=== PATIENT | female | born 1930 | race Caucasian/White ===

== ENCOUNTER 2018-07-25 15:14 | Observation (INO) ==
[2018-07-25] MEDS ORDERED: methylPREDNISolone SOD SUC 125 MG/2 ML VIAL IV STA (16:01)
[2018-07-25] MEDS ORDERED: ONDANSETRON 4 MG/2 ML VIAL IV STA (16:01)
[2018-07-25] MEDS ORDERED: AZITHROMYCIN INJ 500 MG in SODIUM CHLORIDE 0.9% 250 ML IV STA (16:01)
[2018-07-25] MEDS ORDERED: ALBUTEROL/IPRATROPIUM 3 ML NEB RESP TX STA (16:01)
[2018-07-25 16:14] LABS: Basophils # 0.1 10*3/uL (0.0-0.2); Basophils % 0.9 % (0.0-0.8); Eosinophils # 0.3 10*3/uL (0.0-0.87); Eosinophils % 3.3 % (0.00-10.9); Hematocrit 34.5 VOL% (35.7-47.0); Hemoglobin 10.7 GM/DL (12.0-16.0); Immature Granulocytes % 0.3 %; Immature Granulocytes Absolute 0.03 #; Lymphocytes # 0.7 10*3/uL (1.4-4.0); Lymphocytes % 8.3 % (21.3-54.2); Mean Corpuscular Hemoglobin 29 PG (27-34); Mean Platelet Volume 9.7 FL (9.6-12.0); Monocytes # 0.6 10*3/uL (0.11-0.8); Neutrophils # 6.9 10*3/uL (1.4-7.4); Neutrophils % 80.2 % (38.7-73.9); Platelet Count 224 T/CUMM (130-400); Red Blood Count 3.67 MC/CUMM (3.8-5.5); Red Cell Distribution Width 13.2 % (9.3-17.3); White Blood Count 8.6 T/CUMM (4-12)
[2018-07-25 16:27] LABS: PT Patient Result 10.4 SECS; Partial Thromboplastin Time 26.6 SECS (0-40)
[2018-07-25 16:33] LABS: Alanine Aminotransferase 10 U/L (13-56); Albumin 3.8 G/DL (3.4-5.0); Alkaline Phosphatase 99 U/L (45-117); Aspartate Amino Transferase 15 U/L (0-37); Bilirubin,Total < 0.39 MG/DL (0.2-1.0); Blood Urea Nitrogen 40 MG/DL (7-18); Calcium 8.7 MG/DL (8.5-10.1); Glucose 131 MG/DL (74-106); Osmolality,Calculated 288.5 MOS/KG (273-304); Potassium 4.1 MMOL/L (3.5-5.1); Sodium 139 MMOL/L (136-145); Total Protein 7.2 G/DL (6.4-8.3); Troponin I 0.056 NG/ML (0.00-0.045)
[2018-07-25 17:28] LABS: Apearance,Urine CLEAR (Clear); Bilirubin,Urine Negative (Negative); Blood, Urine Negative (Negative); Glucose,Urine (UA) Negative (Negative); Hyaline Casts,Urine 18 /LPF (0-3); Ketones,Urine Negative (Negative); Mucus,Urine Occasional /LPF (Occasional); Nitrite,Urine Negative (Negative); Protein,Urine Negative; Urine Color Yellow (Yellow); Urine Specific Gravity 1.011 (1.001-1.035); Urine Urobilinogen < 2.0 EU/DL (0.2-1.0); WBC,Urine <1 /HPF (0-6)
[2018-07-25] MEDS ORDERED: ONDANSETRON 4 MG/2 ML VIAL IV PRN (17:58)
[2018-07-25] MEDS ORDERED: ACETAMINOPHEN 325 MG TABLET PO PRN (17:58)
[2018-07-25] MEDS ORDERED: ALBUTEROL/IPRATROPIUM 3 ML NEB RESP TX PRN (17:59)
[2018-07-25] MEDS ORDERED: NITROGLYCERIN SL 0.4 MG TABLET SL PRN (18:00)
[2018-07-25] MEDS ORDERED: SODIUM CHLORIDE 0.45% 1,000 ML IV SCH (18:30)
[2018-07-25] MEDS: ALBUTEROL/IPRATROPIUM 3 ML NEB RESP TX SCH (19:33)
[2018-07-25] MEDS: BUDESONIDE 0.5 MG/2 ML NEB RESP TX SCH (19:34)
[2018-07-25] MEDS ORDERED: ATORVASTATIN 80 MG TABLET PO SCH (21:00)
[2018-07-25] MEDS ORDERED: ENOXAPARIN 30 MG/0.3 ML SYRINGE SUBCUT SCH (21:00)
[2018-07-25] MEDS: POTASSIUM CHLORIDE 20 MEQ TABLET PO SCH (21:07)
[2018-07-25] MEDS: PANTOPRAZOLE 40 MG TABLET PO SCH (21:07)
[2018-07-25] MEDS: FERROUS SULFATE 325 MG TABLET PO SCH (21:08)
[2018-07-25] MEDS: FUROSEMIDE 80 MG TABLET PO SCH (21:08)
[2018-07-25] MEDS: MEXILETINE 150 MG CAPSULE PO SCH (21:08)
[2018-07-25] MEDS: sulfaSALAzine 500 MG TABLET PO SCH (21:09)
[2018-07-25] MEDS ORDERED: IBUPROFEN 600 MG TABLET PO PRN (23:37)
[2018-07-26 01:04] LABS: Basophils % 0.5 % (0.0-0.8); Hematocrit 33.5 VOL% (35.7-47.0); Hemoglobin 10.2 GM/DL (12.0-16.0); Immature Granulocytes % 0.6 %; Immature Granulocytes Absolute 0.04 #; Lymphocytes # 0.4 10*3/uL (1.4-4.0); Mean Corpuscular HGB Conc 30.4 GM/DL (32-36); Mean Corpuscular Hemoglobin 29 PG (27-34); Mean Platelet Volume 9.9 FL (9.6-12.0); Monocytes # 0.2 10*3/uL (0.11-0.8); Monocytes % 2.5 % (1.7-12.7); Neutrophils # 5.9 10*3/uL (1.4-7.4); Neutrophils % 90.4 % (38.7-73.9); Platelet Count 217 T/CUMM (130-400); Red Blood Count 3.49 MC/CUMM (3.8-5.5); Red Cell Distribution Width 13.2 % (9.3-17.3); White Blood Count 6.5 T/CUMM (4-12)
[2018-07-26 01:46] LABS: Calcium 8.3 MG/DL (8.5-10.1); Osmolality,Calculated 292.3 MOS/KG (273-304); Potassium 4.3 MMOL/L (3.5-5.1); Thyroid Stimulating Hormone 1.45 uIU/ml (0.358-3.74)
[2018-07-26] MEDS: ALBUTEROL/IPRATROPIUM 3 ML NEB RESP TX SCH ×2 (01:50→07:25)
[2018-07-26] MEDS ORDERED: LEVOTHYROXINE 100 MCG TABLET PO SCH (06:30)
[2018-07-26] MEDS: BUDESONIDE 0.5 MG/2 ML NEB RESP TX SCH (07:26)
[2018-07-26] MEDS ORDERED: FLUTICASONE/SALMETEROL 250-50 DISKUS 14 DOSE INH SCH (09:00)
[2018-07-26] MEDS ORDERED: ASPIRIN CHEW 81 MG TABLET PO SCH (09:00)
[2018-07-26] MEDS ORDERED: AZITHROMYCIN 250 MG TABLET PO SCH (09:00)
[2018-07-26] MEDS ORDERED: LOSARTAN 25 MG TABLET PO SCH (09:00)
[2018-07-26] MEDS ORDERED: CLOPIDOGREL 75 MG TABLET PO SCH (09:00)
[2018-07-26] MEDS ORDERED: CALCIUM (CARBONATE)/VITAMIN D 500 MG-200 UNIT TABLET PO SCH (09:00)
[2018-07-26] MEDS ORDERED: MAGNESIUM OXIDE 400 MG TABLET PO SCH (09:00)
[2018-07-26] MEDS ORDERED: METOPROLOL SUCCINATE XL 50 MG TABLET PO SCH (09:00)
[2018-07-26 09:24] VITALS: BP 131/54
[2018-07-26] MEDS: FUROSEMIDE 80 MG TABLET PO SCH (09:31)
[2018-07-26] MEDS: POTASSIUM CHLORIDE 20 MEQ TABLET PO SCH (09:31)
[2018-07-26] MEDS: PANTOPRAZOLE 40 MG TABLET PO SCH (09:31)
[2018-07-26] MEDS: MEXILETINE 150 MG CAPSULE PO SCH (09:32)
[2018-07-26] MEDS: FERROUS SULFATE 325 MG TABLET PO SCH (09:32)
[2018-07-26] MEDS: sulfaSALAzine 500 MG TABLET PO SCH (09:32)
== END 2018-07-26 12:15 | disposition home or self-care (01) ==
LOC: N.EDINP 15:14 → N.ED 15:14 → N.EDINP 19:00 → N.2E 19:23
PROVIDERS: ADMIT Hospitalist; ATTEND Hospitalist